=== PATIENT | female | born 1990 | race Caucasian/White ===

== ENCOUNTER 2016-06-26 19:36 | Emergency (ER) | payer SELFPAY ==
[~2016-06-26] VITALS: Ht 160 cm; Wt 81.4 kg
[~2016-06-26 19:36] MED LIST: ALBT2T PO; ALBU8.5H6 IH; AZIT250T81 PO; BPR100T PO; CODE-54 PO; DOXY100C2 PO; HYDR-3754 PO; IBP200T PO; METH4TAB27 PO; PRED20TA PO; RSP1T PO; SULF-228 PO
[2016-06-26] MEDS ORDERED: PREN-8 PO (20:06)
[2016-06-26 20:10] VITALS: BP 140/87
== END 2016-06-26 20:14 | disposition home or self-care (01) ==
LOC: ED 19:39
DX: T16.2XXA Foreign body in left ear, initial encounter (principal); W45.8XXA Other foreign body or object entering through skin, initial encounter; Y93.89 Activity, other specified
CPT/HCPCS: 69200; 99281; 99283